=== PATIENT | female | born 1995 | race Caucasian/White ===

== ENCOUNTER → 2017-09-08 15:20 | Outpatient (CLI) | payer OTHER, SELFPAY ==
--- NOTE | 2017-09-08 15:25 | CT_ITS ---
CT sinus wo con CLINICAL INDICATION: Deviated nasal septum ITS.REASON: nasal congestion- deviated septum to left ORDERING PHYSICIAN: Rell Oakes MD PATIENT AGE: 21 years COMPARISON: None TECHNIQUE:Axial, sagittal, and coronal images are generated and reviewed without contrast. All CT scans at the facility use one or more dose reduction, viz: automated exposure control; ma/kV adjustment per patient size (including targeted exams where dose is matched to indication; i.e. head); or iterative reconstruction technique. FINDINGS: There is mild mucosal thickening of the ethmoid sinuses. Mild mucosal thickening also involves the maxillary sinuses. No sinus air-fluid level. There is narrowing of the ostiomeatal complexes bilaterally and there are small bilateral tello bullosa. There is a nasal septal spur inferiorly which projects toward the left causing narrowing of the left nasal canal with leftward nasal septal deviation. More superiorly, there is rightward nasal septal deviation also causing narrowing of the nasal canal. There are scattered small nodes in the neck. Small hyperdensities are present in both parotid glands suggesting small nodes. The globes have an unremarkable appearance. IMPRESSION: 1. Moderate narrowing of the left nasal canal secondary to a septal spur projecting toward the left with leftward nasal septal deviation anteriorly. 2. Narrowing of the right nasal canal more superior with rightward nasal septal deviation superiorly. 3. Mild sinus disease
== END ==
PROVIDERS: Family Provider Emergency Medicine; PCP Emergency Medicine; Visit Provider Otolaryngology
DX: J34.2 Deviated nasal septum (principal); J32.0 Chronic maxillary sinusitis
CPT/HCPCS: 70486

== ENCOUNTER → 2017-10-22 18:22 | Outpatient (CLI) | payer OTHER, SELFPAY ==
[2017-10-22 18:53] LABS: Basophils # 0.1 K/mm3 (0-0.2); Basophils % 0.9 % (0.1-2.0); Eosinophils # 0.1 K/mm3 (0.0-0.4); Eosinophils % 1.3 % (0.1-12.0); Hematocrit 40.1 % (37.0-47.0); Hemoglobin 12.9 g/dL (12.2-16.2); Lymphocytes # 2.4 K/mm3 (0.7-4.5); Lymphocytes % 31.5 K/mm3 (10-50); Mean Corpuscular HGB Conc 32.2 g/dL (31.8-35.4); Mean Corpuscular Hemoglobin 28.2 pg (27.0-31.2); Mean Corpuscular Volume 87.5 fl (81-99); Mean Platelet Volume 7.2 fl (7.4-10.4); Monocytes # 0.4 K/mm3 (0.1-1.0); Monocytes % 4.9 % (1.7-9.3); Neutrophils # 4.6 K/mm3 (1.8-7.8); Neutrophils % 61.5 % (37.0-80.0); Platelet Count 373 K/mm3 (142-424); Red Blood Count 4.58 M/mm3 (4.20-5.40); Red Cell Distribution Width 12.6 % (11.5-17.5); White Blood Count 7.5 K/mm3 (4.5-13.0)
[2017-10-22 19:21] LABS: HCG,Quantitative 4 mIU/mL
== END ==
PROVIDERS: PCP Emergency Medicine; Visit Provider Otolaryngology
DX: Z01.818 Encounter for other preprocedural examination (principal); J32.9 Chronic sinusitis, unspecified; J34.2 Deviated nasal septum
CPT/HCPCS: 36415; 84702; 85025